=== PATIENT | male | born 1995 | race Caucasian/White ===

== ENCOUNTER 2024-09-28 19:25 | Emergency (ER) | payer MEDICAID, SELFPAY ==
[2024-09-28 19:36] VITALS: BP 127/73; PULSE 59; RESP 16; TEMP 36.9; O2SAT 97
--- NOTE | 2024-09-28 19:45 | ED_ITS ---
HPI - Skin/Abscess/Foreign Bdy General Chief complaint: Skin/Abscess/Foreign Body Stated complaint: left forearm issue Time Seen by Provider: 09/28/24 19:29 Source: patient Mode of arrival: ambulatory Limitations: no limitations History of Present Illness HPI narrative: Patient is a 29-year-old male who presents with concern for infection in left forearm. 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 Patient is now concerned he has infection. Related Data Allergies Allergy/AdvReac Type Severity Reaction Status Date / Time No Known Allergies Allergy Verified 09/28/24 19:54 Review of Systems 2 Review of Systems: All systems reviewed & are unremarkable except as noted in HPI and below Constitutional: Constitutional: Denies body ache(s), Denies chills, Denies fatigue, Denies fever(s), Denies headache(s), Denies malaise and Denies weakness Eyes: Eyes: Denies blurry vision, Denies irritation and Denies loss of vision ENT: Denies otalgia, Denies headache(s), Denies nasal discharge, Denies sinus pain and Denies sore throat Cardiovascular: Cardiovascular: Denies chest pain, Denies irregular heart rhythm and Denies dyspnea Respiratory: Respiratory: Denies dyspnea Gastrointestinal: Gastrointestinal: Denies abdominal pain, Denies melena, Denies hematochezia, Denies diarrhea, Denies nausea and Denies vomiting Musculoskeletal: Musculoskeletal: Denies back pain, Denies myalgias and Denies arthralgias Integumentary/Breasts: Skin/Breast: Denies pruritus, Reports erythema, Denies rash and Reports skin swelling Neurologic: Denies headache(s), Denies loss of vision and Denies weakness Psychiatric: Psychiatric: Reports no additional psychiatric complaints Endocrine: Endocrine: Denies fatigue PMFSH Comments At time of signature, agree with nursing past medical, surgical, social and family history. There is no relevant family history pertinent to the presenting complaint. Exam 2 Const: General: cooperative, healthy appearing, comfortable, no acute distress and well nourished Nutritional Appearance: well nourished O rientation/consciousness: patient oriented x3 Limitations: no limitations HENMT: Head: normal to inspection, normocephalic and atraumatic Ears: h earing grossly normal bilaterally and external ears normal Face/Nose/Sinus: N ormal external nose present, normal facial exam and face symmetric Face and sinus: normal facial exam and face symmetric Mouth: Yes lip normal Eyes: General: appearance normal, both eyes and all related structures A lignment and Position: alignment normal and position normal Periorbital: p eriorbital findings normal Eyelids: eyelids normal Pupils: Equal, round and reactive pupils present EOM: EOMs intact bilaterally Neck: Neck: normal visual inspection, full ROM and supple Chest: Chest palpation & inspection: normal inspection of the chest Resp: Effort & Inspection: normal respiratory effort and able to speak in complete sentences Auscultation: clear to auscultation bilaterally Cardio: Rate: regular rate Rhythm: regular rhythm Heart sounds: S1 normal heart sound present and S2 normal heart sound present GI: Inspection: normal to inspection Skin: General skin exam: normal color and no rashes or lesions noted Neuro: General: patient oriented x3 and moves all extremities Cranial nerves: Yes Equal, round and reactive pupils present Speech: normal speech Gait exam (Neuro): Normal gait present Extrem: General: normal to inspection, full ROM and no edema Left upper extremity: elbow/forearm tenderness of the proximal forearm, normal ROM, warmth, distal pulses intact and other (erythema ); no ecchymosis Elbow/forearm/wrist images: 1. 2:2 cm circular areas of erythema, warmth and mild induration. Track ramirez noted to bilateral arms Psych: Appearance: grossly normal and well kempt Mental Status: mental status grossly normal Speech and movement: Normal speech and movement present Affect: normal affect Attitude: cooperative Thought process: Normal thought process present Course Course Emergency Course: Patient is aware of diagnosis, understands and agrees to treatment plan. Anticipatory guidance given. Patient agrees to follow-up as directed and is aware of reasons to seek care at the emergency department. Portions of this record may have been created with voice recognition software Level of Care: Express Care Visit Vital Signs Vital signs: Vital Signs Temperature 36.9 C 09/28/24 19:36 Pulse Rate 59 L 09/28/24 19:36 Respiratory Rate 09/28/24 19:36 Blood Pressure 127/73 09/28/24 19:36 Pulse Oximetry 97 09/28/24 19:36 Oxygen Delivery Room Air 09/28/24 19:36 Temperature 36.9 C 09/28/24 19:36 Pulse Rate 59 L 09/28/24 19:36 Respiratory Rate 16 09/28/24 19:36 Blood Pressure 127/73 09/28/24 19:36 Pulse Oximetry 97 09/28/24 19:36 Oxygen Delivery Room Air 09/28/24 19:36 Reviewed MDM - Skin/Abscess/Foreign Bdy MDM Narrative Medical decision making narrative: Pt well hydrated appearing, in no respiratory distress, hemodynamically stable. Recommend supportive care. The patient is stable at time of discharge the clinical impression was discussed and the patient was given the opportunity to ask questions, which were addressed as completely as possible given the information available at present. Anticipatory guidance and return to care precautions were discussed and the importance of primary care follow-up was stressed and encouraged. The patient voiced understanding of the plan, indications to return, and the need for follow-up. Exam findings show no acute concerns or changes Patient is appropriate for outpatient treatment and follow-up. Differential Diagnosis Differential diagnosis: Likely abscess of skin or subcutaneous tissue, cellulitis, insect bites and contact dermatitis Discharge Plan Discharge Clinical Impression: Cellulitis Qualifiers: Site of cellulitis: extremity Site of cellulitis of extremity: upper extremity Laterality: left Qualified Code(s): L03.114 - Cellulitis of left upper limb Patient Disposition: Home, Self-Care Condition: Stable Instructions: Cellulitis (ED) Additional Instructions: Please follow up with your Primary Care Doctor within 48-72 hours - call for an appointment. Rest and elevate affected area; apply moist heat 3-4 times daily for 10-15 minutes. Take Motrin 600mg every 8 hours with food for pain. Please take Antibiotics as directed. If you experience any worsening redness, swelling, streaking (red lines), fever or chills please go to the ER Patient Language: Maltese Prescriptions: New cephalexin 500 mg capsule 500 mg PO BID 7 Days Qty: 14 0RF mupirocin 2 % ointment 1 applic topical BID Qty: 15 0RF Follow-up/Referrals: PHYSICIAN,CAPPING MACHINE OPERATOR [Primary Care Provider] - Crescencio Lozano MD [Physician] - 3 Days Stand Alone Forms: Work/School Release IP Time of Disposition: 19:56
== END 2024-09-28 20:01 | disposition home or self-care (01) ==
PROVIDERS: Emergency Provider Nurse Practitioner Family
DX: L03.114 Cellulitis of left upper limb (principal)
CPT/HCPCS: 99203; G0463

== ENCOUNTER 2024-11-02 11:47 | Emergency (ER) | payer BC, SELFPAY ==
[2024-11-02 12:00] VITALS: BP 129/59; PULSE 61; RESP 20; TEMP 37.1; O2SAT 100
--- NOTE | 2024-11-02 12:09 | ED_ITS ---
HPI - Nausea/Vomiting/Diarrhea General Chief complaint: Nausea/Vomiting/Diarrhea Stated complaint: diarrhea,fever,nose congested,chills Time Seen by Provider: 11/02/24 12:09 Source: patient, RN notes reviewed and old records reviewed Mode of arrival: ambulatory Limitations: no limitations History of Present Illness HPI Narrative: 29-year-old male who presents to [facility] complaints of diarrhea, nausea and vomiting, fevers,chills, body aches, nasal congestion and drainage starting on Wednesday. Patient reports that he has been taking Tylenol Ibuprofen and Mucinex for his symptoms. Patient reports that when ever he eats anything he can't keep it down, has been drinking some water. Patient reports that highest fever noted to be 101F Wednesday evening has felt cold and had chills. Patient states no abdominal pain just some feelings of cramping with diarrhea. Patient reports that he is suppose to start medication for Hepatitis C on Wednesday. Patient reports prior IV drug use but has been clean for 2 years except for one relapse 3 months ago.. MD elicited complaint: nausea, vomiting, diarrhea and other (Fever, chills, body aches, nasal congestion and drainage) Onset (ago): day(s) (day 3 of symptoms.) Description of vomiting: food contents and watery Description of diarrhea: watery Associated nausea: Yes Associated abdominal pain: No Severity: moderate Exacerbating factors: eating Treatment prior to arrival: NSAIDs and other (Tylenol and Mucinex) Related Data Allergies Allergy/AdvReac Type Severity Reaction Status Date / Time No Known Allergies Allergy Verified 11/02/24 11:51 Review of Systems Review of Systems: CONSTITUTIONAL: Reports fever, chills, or sweats. EYES: Denies visual changes, redness, or discharge. ENT: Reports rhinorrhea, congestion, no sore throat, or otalgia. CARDIOVASCULAR: Denies chest pain, palpitations, or edema. RESPIRATORY: Denies cough or dyspnea. GASTROINTESTINAL: Denies abdominal pain, positive for nausea, vomiting, or diarrhea some cramping with diarrhea, no blood or bilious vomit noted or any black stools or noted blood GENITOURINARY: Denies dysuria or hematuria. SKIN: Denies rash or itching. MUSCULOSKELETAL: Denies back pain, joint pain, states some body aches NEUROLOGIC: Denies headache, numbness, or weakness. PSYCHIATRIC: Positive for anxiety or depression. All systems reviewed & are unremarkable except as noted in HPI and below PMFSH Past Medical History Medical History H/O intravenous drug use in remission Asthma Anxiety Hepatitis C Social History Social History Smoking packs per day: 1 Smoking cigarettes per day: 20.0 Years smoked: 15 Smoking pack-years: 15.00 Smoking status: Current every day smoker Tobacco type: cigarettes Alcohol intake: former Substance use: former Substance use type: IV drugs Last use: clean for 2 years with one reported relapse 3 months ago Living arrangements: with family Gender identity (if verbalized by the patient): Male Comments At time of signature, agree with nursing past medical, surgical, social and family history. There is no relevant family history pertinent to the presenting complaint Exam Narrative: GENERAL: Well-appearing, well-nourished, and in no acute distress. HEAD: Normocephalic, atraumatic. EYES: PERRLA and EOMI. ENT: Nares clear, clear rhinorrhea no epistaxis. Mucous membranes moist.TM's normal throat pink with no swelling NECK: Supple.no lymphadenopathy CHEST: Clear to auscultation. No respiratory distress.no cough noted SAO2 100% on room air HEART: Regular rate and rhythm. No murmur heard. Normal peripheral pulses. ABDOMEN: Soft, nontender on palpation, No McBurney point tenderness, nondistended, normal active bowel sounds. episodes of diarrhea and nausea and vomiting since Wednesday, EXTREMITIES: Normal range of motion. No edema. SKIN: Warm, dry, no rash. NEURO: No focal deficits. Alert and oriented x3. Course Course Emergency Course: Patient is aware of diagnosis, understands and agrees to treatment plan.? Anticipatory guidance given.? Patient agrees to follow-up as directed and is aware of reasons to seek care at the emergency department. Portions of this record may have been created with voice recognition software Level of Care: Express Care Visit Vital Signs Vital signs: Vital Signs Temperature 37.1 C 11/02/24 12:00 Pulse Rate 61 11/02/24 12:00 Respiratory Rate 20 11/02/24 12:00 Blood Pressure 129/59 L 11/02/24 12:00 Pulse Oximetry 100 11/02/24 12:00 Oxygen Delivery Room Air 11/02/24 12:00 Temperature 37.1 C 11/02/24 12:00 Pulse Rate 61 11/02/24 12:00 Respiratory Rate 20 11/02/24 12:00 Blood Pressure 129/59 L 11/02/24 12:00 Pulse Oximetry 100 11/02/24 12:00 Oxygen Delivery Room Air 11/02/24 12:00 Reviewed MDM - Nausea/Vomiting/Diarrhea Differential Diagnosis Differential diagnosis: Likely gastroenteritis, dehydration and other (nausea and vomiting. viral syndrome influenza Symptoms) Medical Records Attestation: I reviewed the patient's medical records. Lab Data Attestation: I reviewed the patient's lab results. Lab results narrative: COVID antigen negative, Influenza A negative, Influenza B negative Labs: Lab Results 11/02/24 Range/Units 11:58 POC Influenza A Ag Negative (Negative) POC Influenza B Ag Negative (Negative) POC SARS CoV-2 Ag Negative (Negative) reviewed Critical Care Time Critical Care Time Critical Care Time: No Discharge Plan Discharge Clinical Impression: Viral infection Patient Disposition: Home, Self-Care Condition: Stable Instructions: Clear Liquid Diet (ED), Gastroenteritis (ED), Viral Syndrome (ED) Additional Instructions: Clear liquids for the next 8-10 hours, then advance to a bland diet as tolerated A bland diet can consist of--BRAT diet which is bananas, rice, applesauce, and toast Avoid fried, greasy, fatty, fried foods Avoid caffeine, nicotine, and alcohol Return to your regular diet in the next 3-4 days Medication as directed for nausea and vomiting Sometimes ibuprofen/Aleve can cause increased stomach upset use Tylenol for pain or fever [id number] Imodium if develop diarrhea Follow-up with her PCP if continued problems or uncontrolled pain Continue Mucinex for cough and congestion and Zyrtec If your symptoms persist, change or worsen significantly before you can contact your personal physician then please, without delay, go to the emergency department for further evaluation. Follow-up with PCP in 7-10 days or sooner if needed Follow up with PCP soon in regards to your blood pressure which is elevated above threshold for referral. Blood pressure above 120/80 may indicate pre- hypertension. 129/50 Patient Language: Azeri Prescriptions: New dicyclomine 20 mg tablet 20 mg PO TID Qty: 20 0RF Rx Instructions: for abdominal cramping ondansetron 4 mg tablet,disintegrating 4 mg PO Q6H PRN (Reason: nausea and vomiting) Qty: 14 0RF Follow-up/Referrals: Crescencio Lozano MD [Primary Care Provider] - Stand Alone Forms: Work/School Release IP Time of Disposition: 12:45 Quality [place] Coma Scale Eyes: Open Verbal: Oriented and Alert Motor: Follows Commands [place] Coma Total Score: 15
[2024-11-02 12:20] LABS: EDCOVIDSCREEN Negative (Negative); EDINFLUASCREEN Negative (Negative); EDINFLUBSCREEN Negative (Negative)
== END 2024-11-02 12:45 | disposition home or self-care (01) ==
PROVIDERS: Emergency Provider Registered Nurse; PCP Emergency Medicine
DX: B34.9 Viral infection, unspecified (principal); F17.210 Nicotine dependence, cigarettes, uncomplicated; Z20.822 Contact with and (suspected) exposure to COVID-19
CPT/HCPCS: 87426; 87804; 99213; G0463

== ENCOUNTER 2024-11-26 12:51 | Emergency (ER) | payer BC, SELFPAY ==
[2024-11-26 13:01] VITALS: BP 136/63; PULSE 64; RESP 20; TEMP 37.2; O2SAT 99
--- NOTE | 2024-11-26 13:15 | ED_ITS ---
HPI - General Adult General Chief complaint: Extremity Problem,Nontraumatic Stated complaint: Left Leg/Hands,Both Feet Numbness Time Seen by Provider: 11/26/24 13:15 Source: patient, RN notes reviewed and old records reviewed Mode of arrival: ambulatory Limitations: no limitations History of Present Illness HPI narrative: 29-year-old male presents to the [facility] with bilateral leg swelling, worse on the left than the right. Unknown time since it started. Patient also concern for right hand and arm swelling. patient is also concerned that he has decreased sensation in bilateral feet. Patient is an IV drug user, last use this morning. Patient with a history of hepatitis C Related Data Home Medications ?Medication ?Instructions ?Recorded ?Confirmed ?Last Taken ?Type No Home Medications 11/26/24 11/26/24 Unknown History Allergies Allergy/AdvReac Type Severity Reaction Status Date / Time No Known Allergies Allergy Verified 11/26/24 13:10 Review of Systems Review of Systems: All systems reviewed & are unremarkable except as noted in HPI and below Constitutional: Constitutional: Reports no additional constitutional complaints ENT: Reports system reviewed and no additional complaints, except as documented Cardiovascular: Cardiovascular: Reports no additional cardiovascular compla ints, Denies chest pain and Denies dyspnea Respiratory: Respiratory: Reports no additional respiratory complaints, Denies chest congestion, Denies cough and Denies dyspnea Musculoskeletal: Musculoskeletal: Reports as per HPI Integumentary/Breasts: Skin/Breast: Reports as per HPI [facility] Past Medical History Medical History (Updated 11/26/24 @ 18:48 by Olya Delgadillo APRN) H/O intravenous drug use in remission Asthma Anxiety Hepatitis C Social History Social History Smoking packs per day: 1 Smoking cigarettes per day: 20.0 Years smoked: 15 Smoking pack-years: 15.00 Smoking status: Current every day smoker Tobacco type: cigarettes Alcohol intake: former Substance use: former Substance use type: IV drugs Last use: clean for 2 years with one reported relapse 3 months ago Living arrangements: with family Gender identity (if verbalized by the patient): Male Comments At the time of my signature, I reviewed and agree with the nursing past medical, surgical, social, and family history. There is no relevant family history pertinent to the patient complaint. Exam Const: General: cooperative, no acute distress, well developed, alert, uncomfortable and well nourished Nutritional Appearance: well nourished Orientation/consciousness: patient oriented x3 Limitations: no limitations HENMT: Head: normal to inspection Eyes: General: appearance normal, both eyes and all related structures Alignment and Position: alignment normal Neck: Neck: normal visual inspection, full ROM, no lymphadenopathy and no meningeal signs Chest: Chest palpation & inspection: normal inspection of the chest Resp: Effort & Inspection: normal respiratory effort and able to speak in complete sentences Cardio: Rate: regular rate GI: GI Palp: No abdominal tenderness Back/Spine/Pelvis: Back: no CVA tenderness and No back tenderness Skin: General skin exam: normal color and no rashes or lesions noted Neuro: General: patient oriented x3, moves all extremities and no meningeal signs Cognition (Neuro): normal cognition Speech: normal speech Gait exam (Neuro): Normal gait present Extrem: General: normal to inspection, full ROM, capillary refill normal, calf tenderness on the left, no clubbing, no cyanosis, edema bilateral (+3 left leg, +2 right leg, +2 rt FA), Limp noted and pedal edema Psych: Appearance: grossly normal and well kempt Mental Status: mental status grossly normal Speech and movement: Normal speech and movement present and Clear speech present Affect: normal affect Attitude: cooperative Course Course Level of Care: Express Care Visit Vital Signs Vital signs: Vital Signs Temperature 98.9 F 11/26/24 13:01 Pulse Rate 64 11/26/24 13:01 Respiratory Rate 20 11/26/24 13:01 Blood Pressure 136/63 11/26/24 13:01 Pulse Oximetry 99 11/26/24 13:01 Oxygen Delivery Room Air 11/26/24 13:01 Temperature 98.9 F 11/26/24 13:01 Pulse Rate 64 11/26/24 13:01 Respiratory Rate 20 11/26/24 13:01 Blood Pressure 136/63 11/26/24 13:01 Pulse Oximetry 99 11/26/24 13:01 Oxygen Delivery Room Air 11/26/24 13:01 Reviewed Transfer Transfered to: [facility] Transportation: Other (POV per pt request, Declined EMS) Transfer rationale: patient with a history IV drug use last used today. With significant swelling legs and forearm sending for higher level of care Accepting physician: Megan COTE Medical Decision Making MDM Narrative Medical decision making narrative: patient sitting in exam room. Patient is nontoxic, vitals are stable. Patient presents with unknown length of time of swelling of bilateral legs worse on left than the right. Also with the hand and forearm swelling. History of hep C, IV drug user transfer instructions were reviewed with patient go directly to the ER, EMS offered, patient declined. All questions have been answered, and the patient deny any further questions Some parts of this dictation were generated by voice recognition software and may contain typographical and/or grammatical inaccuracies. Differential Diagnosis Differential Diagnosis: DVT, abscess, cellulitis, vascular issue, kidney failure, heart failure Medical Records Medical records reviewed: Yes I reviewed the external patient's medical records. Vital Signs Vital Signs: Vital Signs Temperature 98.9 F 11/26/24 13:01 Pulse Rate 64 11/26/24 13:01 Respiratory Rate 20 11/26/24 13:01 Blood Pressure 136/63 11/26/24 13:01 Pulse Oximetry 99 11/26/24 13:01 Oxygen Delivery Room Air 11/26/24 13:01 Temperature 98.9 F 11/26/24 13:01 Pulse Rate 64 11/26/24 13:01 Respiratory Rate 20 11/26/24 13:01 Blood Pressure 136/63 11/26/24 13:01 Pulse Oximetry 99 11/26/24 13:01 Oxygen Delivery Room Air 11/26/24 13:01 Reviewed Lab Data Lab results reviewed: Yes I reviewed the patient's lab results. Labs: Reviewed Critical Care Time Critical Care Time Critical Care Time: No Discharge Plan Discharge Clinical Impression: Swollen leg, Pain and swelling of right forearm Patient Disposition: Acute Care Hospital Condition: Stable Patient Language: Sami Prescriptions: No Action No Home Medications Follow-up/Referrals: Crescencio Lozano MD [Primary Care Provider] -
== END 2024-11-26 13:26 | disposition short-term general hospital (02) ==
LOC: EXPCOLL 12:54
PROVIDERS: Emergency Provider Nurse Practitioner; PCP Emergency Medicine
DX: R22.43 Localized swelling, mass and lump, lower limb, bilateral (principal); M79.631 Pain in right forearm; R22.31 Localized swelling, mass and lump, right upper limb; F17.210 Nicotine dependence, cigarettes, uncomplicated; J45.909 Unspecified asthma, uncomplicated; F19.90 Other psychoactive substance use, unspecified, uncomplicated; Z86.19 Personal history of other infectious and parasitic diseases
CPT/HCPCS: 99212; G0463

== ENCOUNTER 2025-04-02 13:48 | Emergency (ER) | payer OTHER, SELFPAY ==
--- NOTE | 2025-04-02 13:49 | ED_ITS ---
HPI - URI/Sore Throat General Chief Complaint: Nausea/Vomiting/Diarrhea Stated Complaint: flu symptoms Time Seen by Provider: 04/02/25 13:49 Source: patient Mode of arrival: ambulatory Limitations: no limitations History of Present Illness HPI Narrative: Clayton is a 29-year-old male patient presenting to the clinic today with complaints of possible flu-like symptoms. He reports he is having abdominal cramping, nausea, and vomiting that just started last night. States he has not had a bowel movement in the last 3 days. Has been around some sick nieces/nephews. No diarrhea. Has felt feverish and has had a hot cold flashes. Denies any chest pain or shortness of breath. Related Data Allergies Allergy/AdvReac Type Severity Reaction Status Date / Time No Known Allergies Allergy Verified 04/02/25 14:07 [facility] Past Medical History Medical History (Updated 04/02/25 @ 14:27 by Fermín Corona APRN) H/O intravenous drug use in remission Asthma Anxiety Hepatitis C Social History Social History Smoking packs per day: 1 Smoking cigarettes per day: 20.0 Years smoked: 15 Smoking pack-years: 15.00 Smoking status: Current every day smoker Tobacco type: cigarettes Alcohol intake: former Substance use: former Substance use type: IV drugs Last use: clean for 2 years with one reported relapse 3 months ago Living arrangements: with family Gender identity (if verbalized by the patient): Male Comments At the time of my signature, I reviewed and agree with the nursing past medical, surgical, social, and family history. There is no relevant family history pertinent to the patient complaint. Exam Narrative: General: Well-developed, well nourished, in no apparent distress Head: Normocephalic, atraumatic Eyes: Pupils equally round and reactive to light bilaterally, EOM intact, sclera and conjunctive clear, no discharge, lids normal Ears: TMs intact and clear, ear canals clear, no drainage, grossly hearing normal. Nose: Nares patent, clear nasal discharge, no inflammation, no sinus tenderness. Mouth: Oropharynx without lesions or masses, good dentition, MMM. Neck: Supple, trachea midline, no enlargement of anterior or posterior cervical nodes, no thyroid masses or goiter palpable. Cardio: Regular rate and rhythm, s1 and s2 normal, no murmur appreciated. Resp: Clear to auscultation bilaterally anteriorly and posteriorly, no rhonchi, rales, wheezing or rubs Abdomen: Soft, pliable, bowel sounds present in all quadrants, non-tender to palpation, no organomegly, no CVAT tenderness. Course Course Emergency Course: Portions of this record may have been created with voice recognition software. Level of Care: Express Care Visit Vital Signs Vital signs: Vital Signs Temperature 35.9 C L 04/02/25 14:02 Pulse Rate 78 04/02/25 14:02 Respiratory Rate 16 04/02/25 14:02 Blood Pressure 120/59 L 04/02/25 14:02 Pulse Oximetry 97 04/02/25 14:02 Oxygen Delivery Room Air 04/02/25 14:02 Temperature 35.9 C L 04/02/25 14:02 Pulse Rate 78 04/02/25 14:02 Respiratory Rate 16 04/02/25 14:02 Blood Pressure 120/59 L 04/02/25 14:02 Pulse Oximetry 97 04/02/25 14:02 Oxygen Delivery Room Air 04/02/25 14:02 Vital signs reviewed MDM - URI/Sore Throat MDM Narrative Medical decision making narrative: At the time of visit patient is resting comfortably on the exam table. Patient appears to be nontoxic. complaints of possible flu-like symptoms. He reports he is having abdominal cramping, nausea, and vomiting that just started last night. States he has not had a bowel movement in the last 3 days. Thinks he may be constipated. Has been around some sick nieces/nephews. No diarrhea. Has felt feverish and has had a hot cold flashes. Denies any chest pain or shortness of breath. COVID and influenza testing was ordered. Offered KUB x- ray and patient declined. Patient is sitting in a chair at the bedside scratching off a scratch off tickets Labs: COVID and influenza testing was performed and negative in the clinic today. Plan: I suspect patient has acute nausea vomiting with abdominal cramping. Patient reports no abdominal cramping at this time. Is not wanting x-ray of the abdomen completed. He is asking for medications to treat his symptoms. Will send in prescription for MiraLax daily and Zofran for nausea/vomiting. Also requesting a work note. Supportive measures were discussed with the patient and they voiced understanding discharge instructions and agrees to treatment plan. Return precautions reviewed Differential Diagnosis Differential diagnosis: Likely upper respiratory infection, croup, otitis media, sinusitis, viral infection, bronchitis, influenza, pharyngitis and other (Constipation, gastritis, gastroenteritis, small-bowel obstruction, ileus) Discharge Plan Discharge Clinical Impression: Acute nausea with nonbilious vomiting, Abdominal cramping Patient Disposition: Home Condition: Stable Instructions: Antibiotic Form, Acute Nausea and Vomiting (ED), Abdominal Pain (ED) Additional Instructions: COVID and influenza testing was negative in the clinic today Offered abdominal x-ray and you declined in the clinic today. Take prescription medications only as prescribed-MiraLax and Zofran Increase fluids and stay well hydrated Tylenol/motrin for pain/fever Clear liquids x 24 hours then advance as tolerated for nausea/vomiting Go to the ED if you develop a worsening in your condition- high fever not controlled by Tylenol or Motrin, dehydration, weakness, lethargy, shortness of breath, or chest pain. Follow up with your PCP in 3-5 days if symptoms persist. Patient Language: Icelandic Prescriptions: New polyethylene glycol 3350 [Miralax] 17 gram powder in packet 17 g PO DAILY PRN (Reason: constipation) 30 Days Qty: 30 0RF ondansetron 8 mg tablet,disintegrating 8 mg PO Q8H PRN (Reason: nausea and vomiting) 3 Days Qty: 10 0RF Follow-up/Referrals: UNKNOWN,DOCTOR [Non-Staff] - Stand Alone Forms: Work/School Release IP Time of Disposition: 14:29 Quality NIHSS Nursing Documentation ED NIHSS nursing documentation: reviewed/agree
[2025-04-02 14:02] VITALS: BP 120/59; PULSE 78; RESP 16; TEMP 35.9; O2SAT 97
[2025-04-02 14:35] LABS: EDCOVIDSCREEN Negative (Negative); EDINFLUASCREEN Negative (Negative); EDINFLUBSCREEN Negative (Negative)
== END 2025-04-02 14:32 | disposition home or self-care (01) ==
PROVIDERS: Emergency Provider Nurse Practitioner Family; PCP Pediatrics
DX: R11.2 Nausea with vomiting, unspecified (principal); R10.9 Unspecified abdominal pain; Z20.822 Contact with and (suspected) exposure to COVID-19; F17.210 Nicotine dependence, cigarettes, uncomplicated; J45.909 Unspecified asthma, uncomplicated
CPT/HCPCS: 87426; 87804; 99213; G0463